=== PATIENT | male | born 1960 | race Native Hawaiian/Other Pacific Islander ===

== ENCOUNTER 2018-06-15 19:06 | Emergency (ER) | payer OTHER ==
[~2018-06-15] VITALS: Ht 180.3 cm; Wt 68.0 kg
[2018-06-15 19:10] VITALS: TEMP 98
[2018-06-15 20:17] VITALS: BP 167/79
== END 2018-06-15 20:17 | disposition home or self-care (01) ==
LOC: ED 19:06
DX: I10 Essential (primary) hypertension (principal)
CPT/HCPCS: 99282